=== PATIENT | male | born 1945 | race Caucasian/White ===

== ENCOUNTER → 2017-09-06 | Outpatient (CLI) | payer MEDICARE ==
[~2017-09-06] MED LIST: IOPAMIDOL 370 MG/ML 200 ML INFUS..BTL INJ ONE; SODIUM CHLORIDE 0.9% 250ML 250 ML ONE; SODIUM CHLORIDE 0.9% 50ML 50 ML ONE
[2017-09-06 08:32] LABS: BLOOD UREA NITROGEN 16 mg/dL (7-26); BUN/CREATININE RATIO 15 (6-25); CREATININE, SERUM 1.07 mg/dL (0.72-1.25); EST GLOMERULAR FILTRATION RATE > 60 ML/MIN (60-)
--- NOTE | 2017-09-06 15:07 | Diagnostic Imaging Report ---
PROCEDURE: CT ABDOMEN \T\ PELVIS W/WO CONTRAST TECHNIQUE: The abdomen and pelvis were scanned utilizing a multidetector helical scanner from the diaphragm to the lesser trochanter before and after the IV administration of 150 cc of Isovue 370 and the oral administration of water. Coronal and sagittal multiplanar reformations were obtained. COMPARISON: None. INDICATIONS: HEMATURIA FINDINGS: LOWER THORAX: Moderate bilateral centrilobular emphysematous changes. Marked atherosclerotic calcification of the coronary arteries and to a lesser degree thoracic aorta and aortic valves. HEPATOBILIARY: No focal hepatic lesions. No biliary ductal dilatation. Gallbladder is unremarkable. SPLEEN: No splenomegaly. PANCREAS: No focal masses or ductal dilatation. ADRENALS: 1.6 x 1.6 cm nodule in the right adrenal gland (series 3, image 49) which measures less than 10 Hounsfield units on noncontrast exam, consistent with a benign lipid rich adenoma. Diffuse thickening of the left adrenal gland. KIDNEYS/URETERS: Punctate, nonobstructing calculi in the superior and inferior poles of the left kidney (series 3, images 75 and 62). No right renal or any ureteral calculi, hydronephrosis, or obstruction. 1.5 cm simple cyst in the superior pole of the left kidney (series 6, image 62). 1.9 cm simple cyst in the inferior pole of the left kidney (series 6 and image 77). 5.5 x 4.8 x 6.4 cm low-density simple cyst extending anteriorly and arising from the anterior region of the left kidney (series 6, image 68) Subcentimeter hypodense in the inferior pole of the left kidney (series 6, image 77, which is too small to characterize. Cortical striations/wedge-shaped hypodensities are noted in the superior pole and inferior pole of the left kidney (for example series 6 images 62 and 79 and coronal postcontrast images 51 and 44). Cortical scarring/thinning is noted in the superior and inferior poles of the left kidney. Good contrast opacification of the renal collecting systems, renal pelves, right ureter, and proximal and distal left ureters. No filling defects, strictures, or extrinsic compressions. There is mild urothelial thickening in the left renal pelvis and proximal ureter (for example series 6, images 71-78). Mild bilateral perinephric stranding. PELVIC ORGANS/BLADDER: The bladder shows no focal lesions. The prostate is enlarged, measuring 4.4 x 4.7 x 4.1 cm PERITONEUM / RETROPERITONEUM: No free air or fluid. LYMPH NODES: No lymphadenopathy. VESSELS: Atherosclerotic calcification of the abdominal aorta and iliac vessels. Moderate atherosclerotic plaque with 50% luminal reduction in the infrarenal aorta (series 6, image 86). Vascular linear calcification in the left kidney (series 3, image 63). GI TRACT: No bowel dilation or evidence of obstruction. BONES AND SOFT TISSUES: No aggressive lytic or sclerotic bony lesion. Degenerative changes in the lumbosacral spine. IMPRESSION: 1. findings in the superior and inferior pole of the left kidney are worrisome for acute infection/pyelonephritis, in the proper clinical setting. Prior renal infarct is a second consideration, particularly in the setting of cortical scarring. 2. Punctate nonobstructing calculi in the superior and inferior poles of the left kidney. No other renal or any ureteral calculi, hydronephrosis, or obstruction. 3. Mild urothelial thickening in the left renal pelvis and proximal ureter. This may be secondary to infection, however, direct visualization with ureteroscopy is recommended. No focal filling defect is identified. 4. Left renal simple cysts. 5. Enlarged prostate likely due to BPH. 6. 1.6 cm right adrenal gland benign lipid rich adenoma. No further diagnostic or followup imaging is indicated. 7. Moderate bilateral centrilobular emphysematous changes. 8. Marked atherosclerotic disease of the aorta and iliac vessels. Irvin Coelho M.D. Dictated by: Irvin Coelho M.D. on 09/06/2017 at 15:16 Electronically approved by: Irvin Coelho M.D. on 09/06/2017 at 15:16
== END ==
LOC: CT 07:26
PROVIDERS: ATTEND Urology
DX: R31.9 Hematuria, unspecified (principal)
CPT/HCPCS: 36415; 74178; 82565; 84520; J7050; Q9967

== ENCOUNTER → 2017-11-01 | Day surgery (SDC) | payer MEDICARE ==
[2017-09-13 10:46] LABS: BASOPHILS # (AUTO) 0.1 (0.0-0.1); BASOPHILS % 1.1 % (0.0-1.0); EOSINOPHILS # (AUTO) 0.3 (0.0-0.4); EOSINOPHILS % 2.9 % (0.0-6.0); HEMATOCRIT 33.2 % (38.2-49.6); HEMOGLOBIN 10.7 g/dL (14.0-18.0); LYMPHOCYTES # (AUTO) 1.9 (1.0-3.2); LYMPHOCYTES % 21.7 % (18.0-39.1); MEAN CORPUSCULAR HEMOGLOBIN 28.7 pg (28-32); MEAN CORPUSCULAR HGB CONC 32.2 g/dL (31-35); MONOCYTES # (AUTO) 0.8 (0.2-0.8); MONOCYTES % 8.7 % (4.4-11.3); NEUTROPHILS # (AUTO) 5.8 (2.1-6.9); NEUTROPHILS % 65.2 % (38.7-80.0); PLATELET COUNT 423 x10e3/uL (140-360); RED BLOOD COUNT 3.73 x10e6/uL (4.3-5.7); RED CELL DISTRIBUTION WIDTH 14.9 % (11.7-14.4)
[2017-09-13 11:05] LABS: ANION GAP 15.4 mmol/L (8-16); CALCIUM 9.3 mg/dL (8.4-10.2); CREATININE, SERUM 1.2 mg/dL (0.72-1.25); POTASSIUM 4.4 mmol/L (3.5-5.1)
--- NOTE | 2017-09-13 11:48 | Diagnostic Imaging Report ---
PROCEDURE: Frontal and lateral views of the chest. COMPARISON: Patients [facility], CT, CT ABDOMEN/PELVIS WOW, 09/06/2017, 8:53. INDICATIONS: PRE OPERATIVE CHEST X-RAYF FOR CYSTOSCOPY FINDINGS: Lines/tubes: None. Lungs: The lungs are mildly hyperinflated bilaterally. There is no evidence of pneumonia or pulmonary edema. Pleura: There is no pleural effusion or pneumothorax. Heart and mediastinum: The heart and the mediastinum are normal. Calcification of aortic arch. Bones: No acute bony abnormality. Multilevel spondylosis of the thoracic spine. IMPRESSION: 1. No acute cardiopulmonary disease. COPD. Juanjose Sewell M.D. Dictated by: Juanjose Sewell M.D. on 09/13/2017 at 11:56 Electronically approved by: Juanjose Sewell M.D. on 09/13/2017 at 11:56
[~2017-11-01] MED LIST changes: +AMLODIPINE BESYL5 MG PO; +ASPIRIN325 MG PO; +ATORVASTATIN CA20 MG PO; +CEFTRIAXONE SOD 1 GM VIAL ONE; +DEXAMETHASONE SOD PHOS INJ 4 MG/ML VIAL ONE; +FENTANYL CITRATE/PF 100MCG/2 ML INJ ONE; +FISH OIL 1,2001 EAC1 PO; -IOPAMIDOL 370 MG/ML 200 ML INFUS..BTL INJ ONE; +IOPAMIDOL 610MG/1ML 300 MG/ML VIAL IV ONE; +LIDOCAINE HCL 2% LOCAL INJ 5 ML SDV VIAL INJ ONE; +LISINOPRIL10 MG PO; +MIDAZOLAM HCL 2 MG/2 ML VIAL ONE; +MORPHINE SULFATE INJ 10 MG/ML ONE; +NIACIN100 MG PO; +ONDANSETRON HCL INJ 2 MG/ML VIAL ONE; +PROPOFOL IV EMULSION 10 MG/ML 20 ML VIAL ONE; +SEVOFLURANE INHAL SOLN 250 ML PEN BTL ONE; -SODIUM CHLORIDE 0.9% 250ML 250 ML ONE; -SODIUM CHLORIDE 0.9% 50ML 50 ML ONE
--- OUTSIDE RECORDS SUMMARY | 2017-11-01 07:53 | XMS REPORT ---
Author Author [facility] Address Unknown Phone Unavailable Care Team Providers Care [employer] Name Role Phone MAXX OLMSTEAD Unavailable Unavailable Problems This patient has no known problems. Allergies, Adverse Reactions, Alerts This patient has no known allergies or adverse reactions. Medications This patient has no known medications. Results Test Description Test Time Test Comments Text Results Atomic Results Result Comments CHEST 2 VIEWS [place] [address] Patient Name: ENEIDA APARICIO MR #: [id number] : 1945 Age/Sex: 71/M Req #: [id number] Adm Physician: Ordered by: MAXX OLMSTEAD MD Report #: [id number] Location: OR Room/Bed: Procedure: [id number] DX/CHEST 2 VIEWS Exam Date: 09/13/17 Exam Time: 1100 REPORT STATUS: Signed PROCEDURE: Frontal and lateral views of the chest. COMPARISON: Patients [facility], CT, CT ABDOMEN/PELVIS WOW , 09/06/2017, 8:53. INDICATIONS: PRE OPERATIVE CHEST X-RAYF FOR CYSTOSCOPY FINDINGS: Lines/tubes: None. Lungs: The lungs are mildly hyperinflated bilaterally. There is no evidence of pneumonia or pulmonary edema. Pleura: There is no pleural effusion or pneumothorax. Heart and mediastinum: The heart and the mediastinum are normal. Calcification of aortic arch. Bones: No acute bony abnormality. Multilevel spondylosis of the thoracic spine. IMPRESSION: 1. No acute cardiopulmonary disease. COPD. Juanjose Cuevas M.D. Dictated by: Juanjose Cuevas M.D. on 09/13/2017 at 11:56 Electronically approved by: Juanjose Cuevas M.D. on 09/13/2017 at 11: 56 Dictated By: CHAY CUEVAS MD, MD [id number] Transcribed By: SEPIDEH on 09/13/17 1156 COPY TO: MAXX OLMSTEAD MD CT ABDOMEN/PELVIS WOW [place] [address] Patient Name: ENEIDA APARICIO MR #: [id number] : 1945 Age/Sex: 71/M Req # : [id number] Adm Physician: Ordered by: MAXX OLMSTEAD MD Report #: [id number] Location: CT Room/Bed: Procedure: [id number] CT/CT ABDOMEN/PELVIS WOW Exam Date: 09/06/17 Exam Time: 0900 REPORT STATUS: Signed PROCEDURE: CT ABDOMEN T PELVIS W/WO CONTRAST TECHNIQUE: The abdomen and pelvis were scanned utilizing a multidetector helical scanner from the diaphragm to the lesser trochanter before and after the IV administration of 150 cc of Isovue 370 and the oral administration of water. Coronal and sagittal multiplanar reformations were obtained. COMPARISON: None. INDICATIONS: HEMATURIA FINDINGS: LOWER THORAX: Moderate bilateral centrilobular emphysematous changes. Marked atherosclerotic calcification of the coronary arteries and to a lesser degree thoracic aorta and aortic valves. HEPATOBILIARY: No focal hepatic lesions. No biliary ductal dilatation. Gallbladder is unremarkable. SPLEEN: No splenomegaly. PANCREAS: No focal masses or ductal dilatation. ADRENALS: 1.6 x 1.6 cm nodule in the right adrenal gland ( series 3, image 49) which measures less than 10 Hounsfield units on noncontrast exam, consistent with a benign lipid rich adenoma. Diffuse thickening of the left adrenal gland. KIDNEYS/URETERS: Punctate, nonobstructing calculi in the superior and inferior poles of the left kidney (series 3, images 75 and 62). No right renal or any ureteral calculi, hydronephrosis, or obstruction. 1.5 cm simple cyst in the superior pole of the left kidney (series 6, image 62). 1.9 cm simple cyst in the inferior pole of the left kidney (series 6 and image 77). 5.5 x 4.8 x 6.4 cm low- density simple cyst extending anteriorly and arising from the anterior region of the left kidney (series 6, image 68) Subcentimeter hypodense in the inferior pole of the left kidney (series 6, image 77, which is too small to characterize. Cortical striations/wedge-shaped hypodensities are noted in the superior pole and inferior pole of the left kidney (for example series 6 images 62 and 79 and coronal postcontrast images 51 and 44). Cortical scarring/thinning is noted in the superior and inferior poles of the left kidney. Good contrast opacification of the renal collecting systems, renal pelves, right ureter, and proximal and distal left ureters. No filling defects, strictures, or extrinsic compressions. There is mild urothelial thickening in the left renal pelvis and proximal ureter (for example series 6 , images 71-78). Mild bilateral perinephric stranding. PELVIC ORGANS/ BLADDER: The bladder shows no focal lesions. The prostate is enlarged, measuring 4.4 x 4.7 x 4.1 cm PERITONEUM / RETROPERITONEUM: No free air or fluid. LYMPH NODES: No lymphadenopathy. VESSELS: Atherosclerotic calcification of the abdominal aorta and iliac vessels. Moderate atherosclerotic plaque with 50% luminal reduction in the infrarenal aorta ( series 6, image 86). Vascular linear calcification in the left kidney (series 3, image 63). GI TRACT: No bowel dilation or evidence of obstruction. BONES AND SOFT TISSUES: No aggressive lytic or sclerotic bony lesion. Degenerative changes in the lumbosacral spine. IMPRESSION: 1. findings in the superior and inferior pole of the left kidney are worrisome for acute infection/pyelonephritis, in the proper clinical setting. Prior renal infarct is a second consideration, particularly in the setting of cortical scarring. 2. Punctate nonobstructing calculi in the superior and inferior poles of the left kidney. No other renal or any ureteral calculi, hydronephrosis, or obstruction. 3. Mild urothelial thickening in the left renal pelvis and proximal ureter. This may be secondary to infection, however , direct visualization with ureteroscopy is recommended. No focal filling defect is identified. 4. Left renal simple cysts. 5. Enlarged prostate likely due to BPH. 6. 1.6 cm right adrenal gland benign lipid rich adenoma. No further diagnostic or followup imaging is indicated. 7. Moderate bilateral centrilobular emphysematous changes. 8. Marked atherosclerotic disease of the aorta and iliac vessels. Jeremy Coelho M.D. Dictated by: Jeremy Coelho M.D. on 09/06/2017 at 15:16 Electronically approved by: Jeremy Coelho M.D. on 09/06/2017 at 15:16 Dictated By: JEREMY COELHO MD 1516 Transcribed By: SEPIDEH on 09/06/17 1516 COPY TO: MAXX OLMSTEAD MD
--- NOTE | 2017-11-01 15:31 | Operative Report ---
DATE OF PROCEDURE: November 01, 2017 PREOPERATIVE DIAGNOSIS: Hematuria. POSTOPERATIVE DIAGNOSES 1. Hematuria. 2. Transitional cell carcinoma of the bladder. OPERATIVE PROCEDURES PERFORMED 1. Cystoscopy. 2. Bladder biopsy. 3. Transurethral resection of bladder tumor, large. ANESTHESIA: General anesthesia. ESTIMATED BLOOD LOSS: Minimal. INDICATIONS: Mr. Vinod Mackay is a 72-year-old gentleman with a prior history of bladder cancer, who recently presented with gross pain and hematuria. Upper tracts were normal by CAT scan. he now presents for cystoscopy to further evaluate his bladder. PROCEDURE IN DETAIL: The patient was brought into the operating room and after administration of general anesthesia, he was placed in the dorsal lithotomy position and prepped and draped in the usual sterile fashion. Cystourethroscopy was performed using a 21-Georgian cystoscope. The anterior and posterior urethra were noted to be normal. There was mild widely dilated stricture seen at the bulb. The prostate revealed [id number] elevation of the medium bar. The bladder was entered without difficulty. Upon entrance into the bladder, the ureteral orifices were in normal anatomical position and produced clear efflux. The left ureteral orifice was somewhat patulous presumably from prior resection. There were papillary and sessile tumors seen throughout the bladder mucosa involving approximately 40% of the bladder mucosa. This was largely in the posterior left lateral gustafson and dome. There was no obvious tumor noted in the trigone though there were some sessile tumor noted just superior and lateral to the left ureteral orifice. Biopsies were obtained using the cold cup bladder biopsy forceps from the posterior wall, right and left lateral gustafson, and dome. These were sent individually to pathology for microscopic analysis. The Bugbee electrode was then used to Bugbee all of these sites. All of the visible sessile tumors were then fulgurated using the Bugbee electrode. This involved large swathes of the left lateral wall and posterior wall in particular. There was no obvious papillary or sessile tumor visible at the completion of the case. There was minimal bleeding noted. The bladder was left full, and the cystoscope and the sheath were removed. The patient was noted to have a normal urinary flow with Coude. An 18-Georgian Coude catheter was placed in a retrograde fashion and filled with 5 mL of sterile water. This was placed to gravity drainage. The patient was returned to supine position and anesthesia was reversed. He was transferred to a bed and taken to the postanesthesia care unit in good condition. Of note, the needle and instrument counts were correct at the conclusion of the case. Job#: [id number] SAK
== END | disposition home or self-care (01) ==
LOC: OR 07:51
PROVIDERS: ATTEND Urology
DX: C67.8 Malignant neoplasm of overlapping sites of bladder (principal); N35.9 Urethral stricture, unspecified; I10 Essential (primary) hypertension; E78.5 Hyperlipidemia, unspecified; I25.10 Atherosclerotic heart disease of native coronary artery without angina pectoris; R00.1 Bradycardia, unspecified; E11.9 Type 2 diabetes mellitus without complications; F17.210 Nicotine dependence, cigarettes, uncomplicated; Z01.810 Encounter for preprocedural cardiovascular examination; Z01.812 Encounter for preprocedural laboratory examination; Z01.818 Encounter for other preprocedural examination; Z79.82 Long term (current) use of aspirin; Z95.5 Presence of coronary angioplasty implant and graft
CPT/HCPCS: 36415; 52240; 71046; 80048; 85025; 88305; 93005; J0696; J1100; J2001; J2250; J2270; J2405